=== PATIENT | male | born 1980 | race Caucasian/White ===

== ENCOUNTER 2020-11-04 13:07 | Inpatient (IN) ==
[2020-11-04] MEDS ORDERED: ALBUTEROL/IPRATROPIUM 3 ML NEB RESP TX PRN (16:39)
[2020-11-04 17:21] LABS: ABG Base Excess 1.4 MMOL/L (-2.5-2.5); ABG HCO3 25.7 MMOL/L (20-26); ABG Oxygen Saturation 95.5 % (95-100); ABG PCO2 66.3 MM HG (35-48); ABG PH 7.262 (7.35-7.45); ABG PO2 88.8 MM HG (80-95); ABG TCO2 27.8 MMOL/L (23-27)
[2020-11-04] MEDS: methylPREDNISolone SOD SUC 40 MG/1 ML VIAL IV SCH (17:31)
[2020-11-04] MEDS: BUMETANIDE 1 MG/4 ML VIAL IV SCH (17:31)
[2020-11-04] MEDS: MEROPENEM 500 MG in SODIUM CHLORIDE 0.9% 100 ML IV SCH (17:31)
[2020-11-04 17:42] LABS: Calcium 7.5 MG/DL (8.5-10.1); Osmolality,Calculated 289.3 MOS/KG (273-304); Potassium 4.4 MMOL/L (3.5-5.1)
[2020-11-04] MEDS ORDERED: VANCOMYCIN INJ 2,000 MG in SODIUM CHLORIDE 0.9% 500 ML IV SCH (21:00)
[2020-11-05] MEDS: methylPREDNISolone SOD SUC 40 MG/1 ML VIAL IV SCH ×3 (00:05→17:37)
[2020-11-05] MEDS: MEROPENEM 500 MG in SODIUM CHLORIDE 0.9% 100 ML IV SCH ×5 (00:15→23:15)
[2020-11-05 00:19] LABS: ABG Base Excess -0.3 MMOL/L (-2.5-2.5); ABG HCO3 30.9 MMOL/L (20-26); ABG Oxygen Saturation 96.6 % (95-100); ABG PO2 110.2 MM HG (80-95)
[2020-11-05 00:21] LABS: ABG PCO2 99.2 MM HG (35-48); ABG PH 7.112 (7.35-7.45)
[2020-11-05] MEDS ORDERED: ETOMIDATE 20 MG/10 ML VIAL IV ONE ×2 (00:30→00:36)
[2020-11-05] MEDS ORDERED: VECURONIUM 10 MG VIAL IV ONE ×3 (00:30→01:49)
[2020-11-05] MEDS ORDERED: LORazepam 2 MG/1 ML VIAL ONE (01:40)
[2020-11-05] MEDS: LORazepam 2 MG/1 ML VIAL IV ONE ×2 (01:41→07:10)
[2020-11-05] MEDS ORDERED: LORazepam 2 MG/1 ML VIAL IV ONE (01:45)
[2020-11-05 02:34] LABS: Allen Test Positive; Pt O2 Delivery Device Ventilator
[2020-11-05 02:37] LABS: ABG Base Excess 1.9 MMOL/L (-2.5-2.5); ABG HCO3 26.2 MMOL/L (20-26); ABG PCO2 45.3 MM HG (35-48); ABG PH 7.389 (7.35-7.45); ABG TCO2 24.8 MMOL/L (23-27)
[2020-11-05 04:38] LABS: ABG HCO3 27.1 MMOL/L (20-26); ABG Oxygen Saturation 99.9 % (95-100); ABG PCO2 39.8 MM HG (35-48); ABG PH 7.442 (7.35-7.45); Allen Test Positive; Pt O2 Delivery Device Ventilator
[2020-11-05 05:02] LABS: Basophils % 0.1 % (0.0-0.8); Eosinophils % 0.1 % (0.00-10.9); Hematocrit 33.4 VOL% (42.0-52.0); Hemoglobin 9.4 GM/DL (14.0-18.0); Immature Granulocytes % 0.5 %; Immature Granulocytes Absolute 0.04 #; Lymphocytes % 12.4 % (21.2-54.2); Mean Corpuscular HGB Conc 28.1 GM/DL (32-36); Mean Corpuscular Volume 87.9 FL (87-102); Mean Platelet Volume 9.2 FL (9.6-12.0); Monocytes % 1.8 % (1.7-12.7); NRBC # 0.02 10*3/uL; Neutrophils % 85.1 % (38.7-73.9); Platelet Count 397 T/CUMM (130-400); Red Cell Distribution Width 19.4 % (9.3-17.3); White Blood Count 8.4 T/CUMM (4-12)
[2020-11-05 05:17] LABS: Calcium 8.2 MG/DL (8.5-10.1); Osmolality,Calculated 291.4 MOS/KG (273-304); Potassium 4.6 MMOL/L (3.5-5.1); Thyroid Stimulating Hormone 0.515 uIU/ml (0.358-3.74)
[2020-11-05] MEDS ORDERED: PANTOPRAZOLE 40 MG VIAL IV ONE (08:03)
[2020-11-05] MEDS: BUMETANIDE 1 MG/4 ML VIAL IV SCH ×2 (08:33→17:37)
[2020-11-05] MEDS: ENOXAPARIN 40 MG/0.4 ML SYRINGE SUBCUT SCH (08:34)
[2020-11-05] MEDS: PANTOPRAZOLE 40 MG VIAL IV SCH (08:34)
[2020-11-05] MEDS ORDERED: PANTOPRAZOLE 40 MG TABLET PO SCH (09:00)
[2020-11-05] MEDS ORDERED: AMIODARONE 450 MG/9 ML VIAL IV ONE (15:13)
[2020-11-06] MEDS: methylPREDNISolone SOD SUC 40 MG/1 ML VIAL IV SCH ×3 (01:20→17:45)
[2020-11-06 03:28] LABS: Basophils % 0.1 % (0.0-0.8); Hematocrit 31.8 VOL% (42.0-52.0); Hemoglobin 10.3 GM/DL (14.0-18.0); Immature Granulocytes % 0.5 %; Immature Granulocytes Absolute 0.04 #; Lymphocytes # 0.8 10*3/uL (1.4-4.0); Lymphocytes % 10.2 % (21.2-54.2); Mean Corpuscular HGB Conc 32.4 GM/DL (32-36); Monocytes % 3.4 % (1.7-12.7); Neutrophils % 85.8 % (38.7-73.9); Platelet Count 405 T/CUMM (130-400); Red Blood Count 3.74 MC/CUMM (3.8-5.5); Red Cell Distribution Width 19.9 % (9.3-17.3)
[2020-11-06 03:52] LABS: Calcium 7.2 MG/DL (8.5-10.1); Osmolality,Calculated 275.4 MOS/KG (273-304); Potassium 4.4 MMOL/L (3.5-5.1)
[2020-11-06 03:56] LABS: ABG Base Excess 3.8 MMOL/L (-2.5-2.5); ABG HCO3 27.9 MMOL/L (20-26); ABG Oxygen Saturation 99.8 % (95-100); ABG PCO2 35.1 MM HG (35-48); ABG PH 7.494 (7.35-7.45); ABG TCO2 24.2 MMOL/L (23-27)
[2020-11-06] MEDS: MEROPENEM 500 MG in SODIUM CHLORIDE 0.9% 100 ML IV SCH ×3 (05:30→17:45)
[2020-11-06] MEDS: PANTOPRAZOLE 40 MG VIAL IV SCH (08:45)
[2020-11-06] MEDS: BUMETANIDE 1 MG/4 ML VIAL IV SCH ×2 (08:50→17:45)
[2020-11-06] MEDS: ENOXAPARIN 40 MG/0.4 ML SYRINGE SUBCUT SCH (08:50)
[2020-11-06] MEDS: SODIUM HYPOCHLORITE 0.25% IRRIG 473 ML BOTTLE TOP SCH (12:30)
[2020-11-06] MEDS: MULTIVITAMIN LIQUID (CENTRUM) 60 ML BOTTLE PO SCH (13:10)
[2020-11-06 18:48] VITALS: BP 159/100
[2020-11-07] MEDS: MEROPENEM 500 MG in SODIUM CHLORIDE 0.9% 100 ML IV SCH ×4 (00:30→18:32)
[2020-11-07] MEDS: methylPREDNISolone SOD SUC 40 MG/1 ML VIAL IV SCH ×3 (01:08→16:12)
[2020-11-07 03:21] LABS: ABG Base Excess 2.8 MMOL/L (-2.5-2.5); ABG HCO3 26.4 MMOL/L (20-26); ABG Oxygen Saturation 99.1 % (95-100); ABG PCO2 37.1 MM HG (35-48); ABG PO2 178.4 MM HG (80-95); ABG TCO2 27.5 MMOL/L (23-27); Allen Test Positive; Pt O2 Delivery Device Ventilator
[2020-11-07 03:27] LABS: Basophils % 0.1 % (0.0-0.8); Hematocrit 35.9 VOL% (42.0-52.0); Hemoglobin 11.3 GM/DL (14.0-18.0); Immature Granulocytes % 0.5 %; Immature Granulocytes Absolute 0.07 #; Lymphocytes % 7.2 % (21.2-54.2); Mean Corpuscular HGB Conc 31.5 GM/DL (32-36); Mean Corpuscular Volume 83.5 FL (87-102); Mean Platelet Volume 8.9 FL (9.6-12.0); Monocytes % 5.2 % (1.7-12.7); Platelet Count 467 T/CUMM (130-400); Red Cell Distribution Width 20.5 % (9.3-17.3); White Blood Count 13.3 T/CUMM (4-12)
[2020-11-07 06:41] LABS: Calcium 7.4 MG/DL (8.5-10.1); Osmolality,Calculated 276.4 MOS/KG (273-304); Potassium 4.2 MMOL/L (3.5-5.1)
[2020-11-07] MEDS: PANTOPRAZOLE 40 MG VIAL IV SCH (08:40)
[2020-11-07] MEDS: ENOXAPARIN 40 MG/0.4 ML SYRINGE SUBCUT SCH (08:40)
[2020-11-07] MEDS: MULTIVITAMIN LIQUID (CENTRUM) 60 ML BOTTLE PO SCH (08:48)
[2020-11-07 08:50] LABS: Blood Urea Nitrogen 32 MG/DL (7-18); Carbon Dioxide 24 MMOL/L (21-32); Estimated Glom Filtration Rate 145 ML/MIN; Glucose 138 MG/DL (74-106); Osmolality,Calculated 272.5 MOS/KG (273-304); Potassium 4.2 MMOL/L (3.5-5.1); Sodium 132 MMOL/L (136-145)
[2020-11-07 08:52] LABS: Calcium < 5.0 MG/DL (8.5-10.1)
[2020-11-07] MEDS: SODIUM HYPOCHLORITE 0.25% IRRIG 473 ML BOTTLE TOP SCH (09:33)
[2020-11-07] MEDS: MIDAZOLAM 100 MG in SODIUM CHLORIDE 0.9% 80 ML IV PRN ×2 (10:45→23:20)
[2020-11-07] MEDS: BUMETANIDE 1 MG/4 ML VIAL IV SCH ×2 (10:48→16:14)
[2020-11-08] MEDS: methylPREDNISolone SOD SUC 40 MG/1 ML VIAL IV SCH ×3 (00:32→16:25)
[2020-11-08] MEDS: MEROPENEM 500 MG in SODIUM CHLORIDE 0.9% 100 ML IV SCH ×2 (00:32→05:30)
[2020-11-08 03:44] LABS: ABG Base Excess 4.9 MMOL/L (-2.5-2.5); ABG HCO3 28.9 MMOL/L (20-26); ABG Oxygen Saturation 98.5 % (95-100); ABG PCO2 42.5 MM HG (35-48); ABG PH 7.449 (7.35-7.45); ABG TCO2 26.3 MMOL/L (23-27)
[2020-11-08 05:37] LABS: Hematocrit 36.7 VOL% (42.0-52.0); Hemoglobin 10.6 GM/DL (14.0-18.0); Immature Granulocytes Absolute 0.09 #; Lymphocytes # 1.2 10*3/uL (1.4-4.0); Lymphocytes % 13.1 % (21.2-54.2); Mean Corpuscular HGB Conc 28.9 GM/DL (32-36); Mean Corpuscular Volume 84.6 FL (87-102); Monocytes % 6.5 % (1.7-12.7); Neutrophils % 79.4 % (38.7-73.9); Platelet Count 440 T/CUMM (130-400); Red Blood Count 4.34 MC/CUMM (3.8-5.5); Red Cell Distribution Width 20.2 % (9.3-17.3); White Blood Count 9.3 T/CUMM (4-12)
[2020-11-08 05:43] LABS: Calcium 8.4 MG/DL (8.5-10.1); Osmolality,Calculated 290.4 MOS/KG (273-304); Potassium 4.2 MMOL/L (3.5-5.1)
[2020-11-08 05:55] LABS: Hypochromasia 1+; Microcytosis 1+; Platelet Estimate Adequate
[2020-11-08] MEDS: BUMETANIDE 1 MG/4 ML VIAL IV SCH ×2 (08:35→16:25)
[2020-11-08] MEDS: PANTOPRAZOLE 40 MG VIAL IV SCH (08:35)
[2020-11-08] MEDS: ENOXAPARIN 40 MG/0.4 ML SYRINGE SUBCUT SCH (08:35)
[2020-11-08] MEDS: MULTIVITAMIN LIQUID (CENTRUM) 60 ML BOTTLE PO SCH (08:36)
[2020-11-08] MEDS: SODIUM HYPOCHLORITE 0.25% IRRIG 473 ML BOTTLE TOP SCH (08:36)
[2020-11-08] MEDS ORDERED: PIPERACILLIN/TAZOBACTAM 3,375 MG in SODIUM CHLORIDE 0.9% 100 ML IV ONE (09:00)
[2020-11-08] MEDS: GENTAMICIN INJ 180 MG in SODIUM CHLORIDE 0.9% 100 ML IV SCH ×2 (09:41→22:40)
[2020-11-08] MEDS: PIPERACILLIN/TAZOBACTAM 3,375 MG in SODIUM CHLORIDE 0.9% 100 ML IV SCH (18:10)
[2020-11-09] MEDS: methylPREDNISolone SOD SUC 40 MG/1 ML VIAL IV SCH ×2 (00:58→09:40)
[2020-11-09] MEDS: PIPERACILLIN/TAZOBACTAM 3,375 MG in SODIUM CHLORIDE 0.9% 100 ML IV SCH ×2 (03:38→11:41)
[2020-11-09 04:20] LABS: Calcium 8.4 MG/DL (8.5-10.1); Osmolality,Calculated 282.7 MOS/KG (273-304); Potassium 4.7 MMOL/L (3.5-5.1)
[2020-11-09] MEDS ORDERED: METOPROLOL SUCCINATE XL 50 MG TABLET PO SCH (09:38)
[2020-11-09] MEDS: MULTIVITAMIN LIQUID (CENTRUM) 60 ML BOTTLE PO SCH (09:39)
[2020-11-09] MEDS: BUMETANIDE 1 MG/4 ML VIAL IV SCH (09:40)
[2020-11-09] MEDS: ENOXAPARIN 40 MG/0.4 ML SYRINGE SUBCUT SCH (09:40)
[2020-11-09] MEDS: PANTOPRAZOLE 40 MG VIAL IV SCH (09:40)
[2020-11-09] MEDS: GENTAMICIN INJ 180 MG in SODIUM CHLORIDE 0.9% 100 ML IV SCH (09:43)
[2020-11-09] MEDS: SODIUM HYPOCHLORITE 0.25% IRRIG 473 ML BOTTLE TOP SCH (09:47)
== END 2020-11-09 12:51 | DRG 208 ==
LOC: SUATTDRO 16:08 → N.ICU 16:08
PROVIDERS: ADMIT Internal Medicine; ATTEND Internal Medicine

== ENCOUNTER 2021-07-13 10:19 | Inpatient (IN) ==
[2021-07-13] MEDS ORDERED: SODIUM CHLORIDE 0.9% 1,000 ML IV STA ×2 (15:31→17:07)
[2021-07-13 16:07] LABS: Bacteria,Urine Moderate /HPF (Few); Bilirubin,Urine Negative (Negative); Blood, Urine Moderate mg/dL (Negative); Glucose,Urine (UA) Negative (Negative); Ketones,Urine Negative (Negative); Nitrite,Urine Negative (Negative); Protein,Urine 100 MG/DL; RBC,Urine 65 /HPF (0-4); Urine Appearance CLOUDY (Clear); Urine Color Yellow (Yellow); Urine Specific Gravity 1.008 (1.001-1.035); Urine Urobilinogen < 2.0 EU/DL (<2.0)
[2021-07-13 16:33] LABS: Basophils % 0.1 % (0.0-0.8); Eosinophils # 0.1 10*3/uL (0.0-0.87); Eosinophils % 0.6 % (0.00-10.9); Hematocrit 27.3 VOL% (42.0-52.0); Hemoglobin 8.3 GM/DL (14.0-18.0); Immature Granulocytes % 1.4 %; Immature Granulocytes Absolute 0.13 #; Lymphocytes # 1.3 10*3/uL (1.4-4.0); Lymphocytes % 13.5 % (21.2-54.2); Mean Corpuscular HGB Conc 30.4 GM/DL (32-36); Mean Corpuscular Volume 83.5 FL (87-102); Mean Platelet Volume 8.9 FL (9.6-12.0); Monocytes % 7.8 % (1.7-12.7); Neutrophils % 76.6 % (38.7-73.9); Platelet Count 379 T/CUMM (130-400); Red Blood Count 3.27 MC/CUMM (3.8-5.5); Red Cell Distribution Width 17.2 % (9.3-17.3); White Blood Count 9.4 T/CUMM (4-12)
[2021-07-13 16:55] LABS: Alanine Aminotransferase 17 U/L (16-61); Albumin 1.7 G/DL (3.4-5.0); Alkaline Phosphatase 64 U/L (45-117); Aspartate Amino Transferase 24 U/L (0-37); Bilirubin,Total < 0.39 MG/DL (0.20-1.00); Blood Urea Nitrogen 102 MG/DL (7-18); Calcium 7.5 MG/DL (8.5-10.1); Carbon Dioxide 15 MMOL/L (21-32); Glucose 87 MG/DL (74-106); Potassium 4.5 MMOL/L (3.5-5.1); Sodium 136 MMOL/L (136-145); Total Protein 7.6 G/DL (6.4-8.2)
[2021-07-13 17:02] LABS: Estimated Glom Filtration Rate 0 ML/MIN
[2021-07-13] MEDS ORDERED: LACTATED RINGERS 1,500 ML IV ONE (17:49)
[2021-07-13] MEDS ORDERED: DEXTROSE 50% 25 GM/50 ML VIAL IV PRN (17:50)
[2021-07-13] MEDS ORDERED: ALUMINUM/MAGNES/SIMETH MAX STR 30 ML UDCUP PO PRN (17:50)
[2021-07-13] MEDS ORDERED: SIMETHICONE CHEW 125 MG TABLET PO PRN (17:50)
[2021-07-13] MEDS ORDERED: CALCIUM CARBONATE CHEW 500 MG TABLET PO PRN (17:50)
[2021-07-13] MEDS ORDERED: BISACODYL 5 MG TABLET PO PRN (17:50)
[2021-07-13] MEDS ORDERED: ONDANSETRON 4 MG/2 ML VIAL IV PRN ×2 (17:50→17:57)
[2021-07-13] MEDS ORDERED: ALBUTEROL 2.5 MG/3 ML NEB RESP TX PRN (17:50)
[2021-07-13] MEDS ORDERED: GLUCAGON 1 MG VIAL IM PRN ×2 (17:50→17:57)
[2021-07-13] MEDS ORDERED: ACETAMINOPHEN 325 MG TABLET PO PRN ×2 (17:50→17:57)
[2021-07-13] MEDS ORDERED: DEXTROSE 50% 25 GM/50 ML SYRINGE IV PRN (17:57)
[2021-07-13] MEDS ORDERED: SODIUM CHLORIDE 0.9% 1,000 ML IV SCH (18:00)
[2021-07-13] MEDS ORDERED: GENTAMICIN INJ 80 MG/50 ML PREMIX IV SCH (18:30)
[2021-07-13 18:31] LABS: Eosinophils 1 % (0-10); Lymphocytes 19 % (20-55); Metamyelocytes 1 %; Segmented Neutrophils 73 % (50-85); Total Cells Counted 100
[2021-07-13 18:33] LABS: Hypochromia Slight; Microcytosis 1+
[2021-07-13] MEDS ORDERED: GENTAMICIN INJ 280 MG in SODIUM CHLORIDE 0.9% 100 ML IV PRN (20:04)
[2021-07-13] MEDS: PIPERACILLIN/TAZOBACTAM 3,375 MG in SODIUM CHLORIDE 0.9% 100 ML IV SCH (20:57)
[2021-07-13] MEDS: DOCUSATE SODIUM 100 MG CAPSULE PO SCH (21:05)
[2021-07-13] MEDS: HEPARIN 5,000 UNIT/1 ML VIAL SUBCUT SCH (21:05)
[2021-07-13 21:38] LABS: Calcium 6.6 MG/DL (8.5-10.1); Osmolality,Calculated 313.3 MOS/KG (273-304); Potassium 4.1 MMOL/L (3.5-5.1)
[2021-07-13] MEDS: SODIUM BICARB INJ 50 MEQ in DEXTROSE 5% NACL 0.45% 1,000 ML IV SCH (21:40)
[2021-07-13] MEDS ORDERED: GENTAMICIN INJ 280 MG in SODIUM CHLORIDE 0.9% 100 ML IV ONE (22:00)
[2021-07-14] MEDS ORDERED: SODIUM CHLORIDE 0.9% 500 ML IV ONE (05:03)
[2021-07-14 05:50] LABS: Basophils % 0.3 % (0.0-0.8); Eosinophils # 0.1 10*3/uL (0.0-0.87); Eosinophils % 1.6 % (0.00-10.9); Hematocrit 23.3 VOL% (42.0-52.0); Immature Granulocytes % 1.6 %; Immature Granulocytes Absolute 0.13 #; Lymphocytes # 1.4 10*3/uL (1.4-4.0); Lymphocytes % 18.1 % (21.2-54.2); Mean Corpuscular Volume 84.7 FL (87-102); Mean Platelet Volume 8.9 FL (9.6-12.0); Monocytes % 8.4 % (1.7-12.7); Platelet Count 313 T/CUMM (130-400); Red Blood Count 2.75 MC/CUMM (3.8-5.5); Red Cell Distribution Width 17.4 % (9.3-17.3); White Blood Count 7.9 T/CUMM (4-12)
[2021-07-14 06:17] LABS: Alanine Aminotransferase 11 U/L (16-61); Albumin 1.1 G/DL (3.4-5.0); Alkaline Phosphatase 69 U/L (45-117); Aspartate Amino Transferase 21 U/L (0-37); Bilirubin,Total < 0.39 MG/DL (0.20-1.00); Blood Urea Nitrogen 100 MG/DL (7-18); Calcium 6.7 MG/DL (8.5-10.1); Carbon Dioxide 14 MMOL/L (21-32); Estimated Glom Filtration Rate 7 ML/MIN; Glucose 115 MG/DL (74-106); Osmolality,Calculated 314.1 MOS/KG (273-304); Potassium 4.1 MMOL/L (3.5-5.1); Sodium 142 MMOL/L (136-145); Total Protein 6.4 G/DL (6.4-8.2)
[2021-07-14] MEDS ORDERED: ALBUMIN 25% 25 GM/100 ML VIAL IV ONE (06:21)
[2021-07-14 06:30] LABS: Risk Ratio 7.29; Thyroid Stimulating Hormone 1.67 uIU/ml (0.358-3.74); VLDL Cholesterol 33.4 MG/DL
[2021-07-14 06:34] LABS: % Iron Saturation 32.1 % (18-50); Ferritin 2624.9 ng/mL (26-388)
[2021-07-14] MEDS: SODIUM BICARB INJ 50 MEQ in DEXTROSE 5% NACL 0.45% 1,000 ML IV SCH ×2 (06:59→09:46)
[2021-07-14] MEDS ORDERED: INFLUENZA VIRUS VACCINE 0.5 ML SYRINGE IM ONE (08:09)
[2021-07-14] MEDS ORDERED: LACTATED RINGERS 500 ML IV ONE ×2 (08:26→11:29)
[2021-07-14 09:24] LABS: Eosinophils 2 % (0-10); Hypochromia 2+; Lymphocytes 11 % (20-55); Platelet Estimate Normal; Segmented Neutrophils 82 % (50-85); Total Cells Counted 100
[2021-07-14 09:25] LABS: Target Cells Few
[2021-07-14] MEDS: PIPERACILLIN/TAZOBACTAM 3,375 MG in SODIUM CHLORIDE 0.9% 100 ML IV SCH ×2 (09:25→20:56)
[2021-07-14] MEDS: DOCUSATE SODIUM 100 MG CAPSULE PO SCH ×2 (09:25→20:57)
[2021-07-14] MEDS: PANTOPRAZOLE 40 MG TABLET PO SCH (09:25)
[2021-07-14 09:41] LABS: Hematocrit 22.8 VOL% (42.0-52.0); Hemoglobin 6.7 GM/DL (14.0-18.0)
[2021-07-14] MEDS ORDERED: SODIUM CHLORIDE 0.9% 1,000 ML IV PRN (09:57)
[2021-07-14] MEDS: HEPARIN 5,000 UNIT/1 ML VIAL SUBCUT SCH (11:30)
[2021-07-14] MEDS: SODIUM BICARB INJ 100 MEQ in DEXTROSE 5% NACL 0.22% 1,000 ML IV SCH (15:25)
[2021-07-14 16:42] LABS: Hematocrit 24.1 VOL% (42.0-52.0); Hemoglobin 7.2 GM/DL (14.0-18.0)
[2021-07-14 21:45] LABS: Hematocrit 29.7 VOL% (42.0-52.0); Hemoglobin 8.9 GM/DL (14.0-18.0)
[2021-07-15] MEDS: SODIUM BICARB INJ 100 MEQ in DEXTROSE 5% NACL 0.22% 1,000 ML IV SCH ×2 (00:48→16:24)
[2021-07-15] MEDS ORDERED: SODIUM CHLORIDE 0.9% 500 ML IV ONE (02:25)
[2021-07-15 05:22] LABS: Basophils % 0.3 % (0.0-0.8); Eosinophils # 0.3 10*3/uL (0.0-0.87); Eosinophils % 2.6 % (0.00-10.9); Hematocrit 25.9 VOL% (42.0-52.0); Hemoglobin 7.7 GM/DL (14.0-18.0); Immature Granulocytes % 1.9 %; Immature Granulocytes Absolute 0.18 #; Lymphocytes # 1.9 10*3/uL (1.4-4.0); Lymphocytes % 19.6 % (21.2-54.2); Mean Corpuscular HGB Conc 29.7 GM/DL (32-36); Mean Corpuscular Volume 85.8 FL (87-102); Monocytes % 7.5 % (1.7-12.7); Neutrophils % 68.1 % (38.7-73.9); Platelet Count 333 T/CUMM (130-400); Red Blood Count 3.02 MC/CUMM (3.8-5.5); Red Cell Distribution Width 17.2 % (9.3-17.3); White Blood Count 9.5 T/CUMM (4-12)
[2021-07-15 05:47] LABS: Albumin 1.4 G/DL (3.4-5.0); Bilirubin,Total 0.6 MG/DL (0.20-1.00); Calcium 6.2 MG/DL (8.5-10.1); Osmolality,Calculated 316.7 MOS/KG (273-304); Potassium 3.9 MMOL/L (3.5-5.1); Total Protein 6.6 G/DL (6.4-8.2)
[2021-07-15] MEDS: PANTOPRAZOLE 40 MG TABLET PO SCH (09:07)
[2021-07-15] MEDS: DOCUSATE SODIUM 100 MG CAPSULE PO SCH ×2 (09:07→21:13)
[2021-07-15] MEDS: PIPERACILLIN/TAZOBACTAM 3,375 MG in SODIUM CHLORIDE 0.9% 100 ML IV SCH (09:07)
[2021-07-15 09:14] LABS: Eosinophils 5 % (0-10); Lymphocytes 21 % (20-55); Metamyelocytes 1 %; Segmented Neutrophils 62 % (50-85); Total Cells Counted 100
[2021-07-15 09:15] LABS: Atypical Lymphocytes Few; Hypochromia 1+; Ovalocytes Few; Platelet Estimate Normal
[2021-07-15] MEDS ORDERED: SODIUM CHLORIDE 0.9% IV SCH (11:00)
[2021-07-15] MEDS ORDERED: DAPTOMYCIN IV SCH (11:00)
[2021-07-15] MEDS: SODIUM BICARB INJ 100 MEQ in DEXTROSE 5% 1,000 ML IV SCH (16:08)
[2021-07-15] MEDS: FERROUS SULFATE 325 MG TABLET PO SCH (21:12)
[2021-07-16] MEDS: SODIUM BICARB INJ 100 MEQ in DEXTROSE 5% 1,000 ML IV SCH ×4 (01:51→20:13)
[2021-07-16 05:42] LABS: Basophils % 0.1 % (0.0-0.8); Eosinophils # 0.2 10*3/uL (0.0-0.87); Eosinophils % 2.4 % (0.00-10.9); Hematocrit 25.7 VOL% (42.0-52.0); Hemoglobin 7.8 GM/DL (14.0-18.0); Immature Granulocytes % 2.3 %; Lymphocytes # 1.8 10*3/uL (1.4-4.0); Lymphocytes % 20.9 % (21.2-54.2); Mean Corpuscular HGB Conc 30.4 GM/DL (32-36); Mean Corpuscular Volume 85.4 FL (87-102); Mean Platelet Volume 8.9 FL (9.6-12.0); Monocytes % 8.1 % (1.7-12.7); Neutrophils % 66.2 % (38.7-73.9); Platelet Count 315 T/CUMM (130-400); Red Blood Count 3.01 MC/CUMM (3.8-5.5); Red Cell Distribution Width 17.1 % (9.3-17.3); White Blood Count 8.8 T/CUMM (4-12)
[2021-07-16 06:02] LABS: Albumin 1.3 G/DL (3.4-5.0); Bilirubin,Total 0.6 MG/DL (0.20-1.00); Osmolality,Calculated 318.1 MOS/KG (273-304); Potassium 3.6 MMOL/L (3.5-5.1); Total Protein 6.5 G/DL (6.4-8.2)
[2021-07-16 06:28] LABS: Calcium 6.1 MG/DL (8.5-10.1); Osmolality,Calculated 310.7 MOS/KG (273-304); Potassium 3.6 MMOL/L (3.5-5.1)
[2021-07-16] MEDS: ASCORBIC ACID 500 MG TABLET PO SCH (08:30)
[2021-07-16] MEDS: FERROUS SULFATE 325 MG TABLET PO SCH ×2 (08:30→21:42)
[2021-07-16] MEDS: PANTOPRAZOLE 40 MG TABLET PO SCH (08:30)
[2021-07-16] MEDS: DOCUSATE SODIUM 100 MG CAPSULE PO SCH ×2 (08:31→21:42)
[2021-07-16] MEDS: CIPROFLOXACIN INJ 400 MG/200 ML PREMIX IV SCH (13:04)
[2021-07-17] MEDS ORDERED: SODIUM CHLORIDE 0.9% 500 ML IV ONE (01:00)
[2021-07-17] MEDS: SODIUM BICARB INJ 100 MEQ in DEXTROSE 5% 1,000 ML IV SCH ×2 (03:22→06:43)
[2021-07-17 06:46] LABS: Basophils % 0.2 % (0.0-0.8); Eosinophils # 0.2 10*3/uL (0.0-0.87); Eosinophils % 2.2 % (0.00-10.9); Hematocrit 26.6 VOL% (42.0-52.0); Hemoglobin 7.9 GM/DL (14.0-18.0); Immature Granulocytes % 2.5 %; Immature Granulocytes Absolute 0.22 #; Lymphocytes # 1.8 10*3/uL (1.4-4.0); Lymphocytes % 21.1 % (21.2-54.2); Mean Corpuscular HGB Conc 29.7 GM/DL (32-36); Mean Corpuscular Volume 86.1 FL (87-102); Mean Platelet Volume 8.9 FL (9.6-12.0); Monocytes % 10.2 % (1.7-12.7); Neutrophils % 63.8 % (38.7-73.9); Platelet Count 299 T/CUMM (130-400); Red Blood Count 3.09 MC/CUMM (3.8-5.5); Red Cell Distribution Width 16.8 % (9.3-17.3); White Blood Count 8.6 T/CUMM (4-12)
[2021-07-17 07:05] LABS: Alanine Aminotransferase < 9 U/L (16-61); Albumin 1.4 G/DL (3.4-5.0); Alkaline Phosphatase 53 U/L (45-117); Aspartate Amino Transferase 18 U/L (0-37); Bilirubin,Total < 0.39 MG/DL (0.20-1.00); Blood Urea Nitrogen 45 MG/DL (7-18); Calcium 6.7 MG/DL (8.5-10.1); Carbon Dioxide 29 MMOL/L (21-32); Estimated Glom Filtration Rate 53 ML/MIN; Glucose 92 MG/DL (74-106); Osmolality,Calculated 299.7 MOS/KG (273-304); Potassium 3.2 MMOL/L (3.5-5.1); Sodium 145 MMOL/L (136-145)
[2021-07-17] MEDS: PANTOPRAZOLE 40 MG TABLET PO SCH (08:51)
[2021-07-17] MEDS: POTASSIUM CHLORIDE 20 MEQ TABLET PO PRN ×3 (08:51→15:07)
[2021-07-17] MEDS: MULTIVITAMIN (CENTRUM) TABLET PO SCH (08:51)
[2021-07-17] MEDS: FERROUS SULFATE 325 MG TABLET PO SCH ×2 (08:51→23:07)
[2021-07-17] MEDS: ASCORBIC ACID 500 MG TABLET PO SCH (08:51)
[2021-07-17] MEDS: DOCUSATE SODIUM 100 MG CAPSULE PO SCH ×2 (10:31→23:07)
[2021-07-17] MEDS: DEXTROSE 5% NACL 0.45% 1,000 ML IV SCH (10:31)
[2021-07-17] MEDS: CIPROFLOXACIN INJ 400 MG/200 ML PREMIX IV SCH (12:28)
[2021-07-18 06:35] LABS: Basophils % 0.2 % (0.0-0.8); Eosinophils # 0.2 10*3/uL (0.0-0.87); Eosinophils % 2.3 % (0.00-10.9); Hematocrit 26.9 VOL% (42.0-52.0); Hemoglobin 7.8 GM/DL (14.0-18.0); Immature Granulocytes % 2.7 %; Immature Granulocytes Absolute 0.25 #; Lymphocytes % 21.4 % (21.2-54.2); Mean Corpuscular Volume 88.8 FL (87-102); Mean Platelet Volume 8.8 FL (9.6-12.0); Monocytes % 10.2 % (1.7-12.7); Neutrophils % 63.2 % (38.7-73.9); Platelet Count 289 T/CUMM (130-400); Red Blood Count 3.03 MC/CUMM (3.8-5.5); Red Cell Distribution Width 16.8 % (9.3-17.3); White Blood Count 9.1 T/CUMM (4-12)
[2021-07-18 07:52] LABS: Albumin 1.4 G/DL (3.4-5.0); Bilirubin,Total 0.7 MG/DL (0.20-1.00); Calcium 6.4 MG/DL (8.5-10.1); Osmolality,Calculated 293.7 MOS/KG (273-304); Potassium 4.3 MMOL/L (3.5-5.1); Total Protein 6.1 G/DL (6.4-8.2)
[2021-07-18] MEDS: MULTIVITAMIN (CENTRUM) TABLET PO SCH (09:09)
[2021-07-18] MEDS: PANTOPRAZOLE 40 MG TABLET PO SCH (09:09)
[2021-07-18] MEDS: FERROUS SULFATE 325 MG TABLET PO SCH ×2 (09:09→20:32)
[2021-07-18] MEDS: ASCORBIC ACID 500 MG TABLET PO SCH (09:09)
[2021-07-18] MEDS: DEXTROSE 5% NACL 0.45% 1,000 ML IV SCH (09:10)
[2021-07-18] MEDS: DOCUSATE SODIUM 100 MG CAPSULE PO SCH ×2 (09:10→20:32)
[2021-07-18] MEDS: CIPROFLOXACIN INJ 400 MG/200 ML PREMIX IV SCH (11:34)
[2021-07-19 05:19] LABS: Basophils % 0.2 % (0.0-0.8); Eosinophils # 0.3 10*3/uL (0.0-0.87); Eosinophils % 2.8 % (0.00-10.9); Hematocrit 27.1 VOL% (42.0-52.0); Hemoglobin 7.8 GM/DL (14.0-18.0); Immature Granulocytes % 1.9 %; Immature Granulocytes Absolute 0.19 #; Lymphocytes # 2.3 10*3/uL (1.4-4.0); Lymphocytes % 22.5 % (21.2-54.2); Mean Corpuscular HGB Conc 28.8 GM/DL (32-36); Mean Platelet Volume 8.6 FL (9.6-12.0); Monocytes % 9.4 % (1.7-12.7); Neutrophils % 63.2 % (38.7-73.9); Platelet Count 293 T/CUMM (130-400); Red Blood Count 3.08 MC/CUMM (3.8-5.5); Red Cell Distribution Width 16.7 % (9.3-17.3); White Blood Count 10.2 T/CUMM (4-12)
[2021-07-19 05:44] LABS: Hypochromia 2+
[2021-07-19 05:45] LABS: Microcytosis 1+; Platelet Estimate Normal
[2021-07-19 05:47] LABS: Alanine Aminotransferase < 9 U/L (16-61); Albumin 1.4 G/DL (3.4-5.0); Alkaline Phosphatase 67 U/L (45-117); Aspartate Amino Transferase 18 U/L (0-37); Bilirubin,Total < 0.39 MG/DL (0.20-1.00); Blood Urea Nitrogen 20 MG/DL (7-18); Calcium 7.5 MG/DL (8.5-10.1); Carbon Dioxide 24 MMOL/L (21-32); Estimated Glom Filtration Rate 93 ML/MIN; Glucose 82 MG/DL (74-106); Osmolality,Calculated 282.3 MOS/KG (273-304); Potassium 3.7 MMOL/L (3.5-5.1); Potassium 3.8 MMOL/L (3.5-5.1); Sodium 141 MMOL/L (136-145)
[2021-07-19] MEDS: MULTIVITAMIN (CENTRUM) TABLET PO SCH (09:22)
[2021-07-19] MEDS: DOCUSATE SODIUM 100 MG CAPSULE PO SCH (09:23)
[2021-07-19] MEDS: FERROUS SULFATE 325 MG TABLET PO SCH (09:23)
[2021-07-19] MEDS: ASCORBIC ACID 500 MG TABLET PO SCH (09:23)
[2021-07-19] MEDS: PANTOPRAZOLE 40 MG TABLET PO SCH (09:23)
[2021-07-19] MEDS: DEXTROSE 5% NACL 0.45% 1,000 ML IV SCH (09:58)
[2021-07-19 12:32] VITALS: BP 117/58
[2021-07-19] MEDS ORDERED: CIPROFLOXACIN 500 MG TABLET PO SCH (17:00)
== END 2021-07-19 15:27 | disposition home health service (06) | DRG 872 ==
LOC: EDUNIT# → N.ED 10:19 → SUATTDRO 17:29 → N.3E 17:29
PROVIDERS: ADMIT Emergency Medicine; ATTEND Internal Medicine